=== PATIENT | male | born 1970 | race Caucasian/White ===

== ENCOUNTER 2021-10-21 15:51 | Inpatient (IN) | payer BC ==
[2021-10-21] MEDS ORDERED: Ondansetron ODT 4 MG TAB PO PRN (17:17)
[2021-10-21] MEDS ORDERED: Acetaminophen 325 MG TAB PO PRN (17:17)
[2021-10-21] MEDS ORDERED: Acetaminophen 650 MG Suppository PR PRN (17:17)
[2021-10-21] MEDS ORDERED: Nitroglycerin 0.4 MG TAB (25 Tab Bottle) SL PRN (17:19)
[2021-10-21] MEDS ORDERED: hydrALAZINE 20 MG/ML VIAL SLOW IVP PRN (17:20)
[2021-10-21] MEDS ORDERED: Sodium Chloride 0.9% 1,000 ML IV SCH (17:30)
[2021-10-21] MEDS: Ondansetron PF 4 MG/2 ML Vial IVP PRN (18:31)
[2021-10-21] MEDS ORDERED: Pantoprazole 40 MG VIAL IVP SCH (19:00)
[2021-10-21 19:31] VITALS: BMI 29.9
[2021-10-22 06:05] LABS: Creatinine, Urine 150.68 mg/dL (63-166)
[2021-10-22 06:11] LABS: Anion Gap 18 mmol/L (10-20); BUN (Urea Nitrogen) 30 mg/dL (8.4-25.7); Calc. Creatinine Clearance 77 mL/min (70-130); Carbon Dioxide 24 mmol/L (22-29); Cardiac Risk 5.1 (Less than 4.5); Chloride 105 mmol/L (98-107); Cholesterol 157 mg/dl (< 200 Desired); Glucose 107 mg/dL (70-105); HDL Cholesterol 31 mg/dL (>60 Neg Risk); LDL Cholesterol, Calculated 91 mg/dL; Magnesium 2.1 mg/dL (1.6-2.6); Potassium 3.8 mmol/L (3.5-5.1); Sodium 143 mmol/L (136-145); Triglycerides 173 mg/dL (Less than 150)
[2021-10-22 07:07] LABS: #Basophils 0.1 10x3/uL (0.0-0.2); #Eosinphils 0.2 10x3/uL (0.0-0.5); #Neutrophils 3.4 10x3/uL (1.5-8.4); %Basophils 0.9 % (0.0-2.0); %Eosinophils 2.6 % (0.0-6.0); %Lymphocytes 27.8 % (18.0-47.0); %Monocytes 14.9 % (0.0-10.0); %Neutrophils 53.6 % (40.0-75.0); Hemoglobin 16.1 g/dL (13.5-17.5); Mean Corpuscular HGB CONC 33.8 g/dL (32.0-36.0); Mean Corpuscular Hemoglobin 29.2 pg (27.0-33.0); Mean Corpuscular Volume 86.4 fl (81.2-95.1); Mean Platelet Volume 11.2 fl (7.4-10.4); Platelet Count 162 10x3/uL (150-450); RBC Distribution Width 14.6 % (11.5-14.5); Red Blood Cell (RBC) Count 5.52 10x6/uL (4.32-5.72); White Blood Cell (WBC) Count 6.4 10x3/uL (3.5-10.5)
[2021-10-22 07:07] LABS: SARS-CoV-2 NAA Rapid Test Not Detected (NotDetected)
[2021-10-22] MEDS: Aspirin Chewable 81 MG TAB PO SCH (09:41)
[2021-10-22] MEDS: Pantoprazole 40 MG VIAL IVP SCH (09:42)
[2021-10-22 12:37] LABS: Hemoglobin A1c 5.6 % (4.0-6.0)
[2021-10-22] MEDS ORDERED: Communication Order-Pharmacy FS SCH (15:30)
[2021-10-22] MEDS: Ondansetron PF 4 MG/2 ML Vial IVP PRN (16:03)
[2021-10-22] MEDS ORDERED: methylPREDNISolone Sod Succ 40 MG VIAL IVP SCH (18:00)
[2021-10-22] MEDS: Metoprolol Tartrate 25 MG TAB PO SCH (20:33)
[2021-10-22] MEDS: methylPREDNISolone Sod Succ 40 MG VIAL IVP SCH (20:34)
[2021-10-22] MEDS ORDERED: Metoprolol Tartrate 25 MG TAB PO SCH (21:00)
[2021-10-22] MEDS ORDERED: Atorvastatin Calcium 40 MG TAB PO SCH (21:00)
[2021-10-23] MEDS ORDERED: Morphine 4 MG/ML VIAL SLOW IVP SCH (01:00)
[2021-10-23] MEDS: methylPREDNISolone Sod Succ 40 MG VIAL IVP SCH ×3 (02:26→15:00)
[2021-10-23 04:22] LABS: Anion Gap 17 mmol/L (10-20); BUN (Urea Nitrogen) 24 mg/dL (8.4-25.7); Calc. Creatinine Clearance 110 mL/min (70-130); Calcium 9.7 mg/dL (7.8-10.44); Carbon Dioxide 23 mmol/L (22-29); Chloride 105 mmol/L (98-107); Glucose 130 mg/dL (70-105); Potassium 4.2 mmol/L (3.5-5.1); Sodium 141 mmol/L (136-145)
[2021-10-23 04:37] LABS: #Monocytes 0.4 10x3/uL (0.0-1.1); #Neutrophils 4.2 10x3/uL (1.5-8.4); %Basophils 0.7 % (0.0-2.0); %Eosinophils 0.2 % (0.0-6.0); %Lymphocytes 22.2 % (18.0-47.0); %Monocytes 6.4 % (0.0-10.0); %Neutrophils 70.3 % (40.0-75.0); Hemoglobin 16.6 g/dL (13.5-17.5); Mean Corpuscular HGB CONC 33.9 g/dL (32.0-36.0); Mean Corpuscular Hemoglobin 29.5 pg (27.0-33.0); Mean Platelet Volume 11.2 fl (7.4-10.4); Platelet Count 200 10x3/uL (150-450); RBC Distribution Width 14.2 % (11.5-14.5); Red Blood Cell (RBC) Count 5.63 10x6/uL (4.32-5.72)
[2021-10-23] MEDS: Metoprolol Tartrate 25 MG TAB PO SCH (05:43)
[2021-10-23] MEDS ORDERED: Nitroglycerin 50 MG/250 ML BOT 0 ML ONE (07:19)
[2021-10-23] MEDS ORDERED: Heparin 10,000 UNITS/ 10 ML VIAL ONE (07:19)
[2021-10-23] MEDS ORDERED: Bivalirudin 250 MG VIAL ONE (07:20)
[2021-10-23] MEDS: Aspirin Chewable 81 MG TAB PO SCH (07:28)
[2021-10-23] MEDS: Pantoprazole 40 MG VIAL IVP SCH (07:29)
[2021-10-23] MEDS ORDERED: Lidocaine 1% (PF) 30 ML VIAL ONE (07:32)
[2021-10-23] MEDS ORDERED: Midazolam HCl 2 mg/2 ml Vial ONE (07:54)
[2021-10-23] MEDS ORDERED: Fentanyl 100 MCG/2 ML VIAL ONE (07:54)
[2021-10-23] MEDS ORDERED: diphenhydrAMINE 50 MG/ML VIAL IVP SCH (08:00)
[2021-10-23] MEDS ORDERED: Famotidine/PF 20 mg/2ml Vial SLOW IVP SCH (08:00)
[2021-10-23] MEDS ORDERED: Sodium Chloride 0.9% 200 ML IV PRN (09:57)
[2021-10-23] MEDS ORDERED: Nitroglycerin 0.4 MG TAB (25 Tab Bottle) SL PRN (09:57)
[2021-10-23] MEDS ORDERED: Acetaminophen/Codeine 30-300mg Tablet PO PRN ×2 (09:57)
[2021-10-23 13:15] LABS: RBC/HPF 0-3 HPF (0-3)
[2021-10-23] MEDS ORDERED: Glycerin Adult Supp. (24 ct jar) PR SCH (16:00)
[2021-10-23 16:12] LABS: Bilirubin Neg (Negative); Blood, Urine 10 (Negative); Clarity Clear (Clear); Glucose, Urine (Dipstick) Normal (Negative); Ketone, Urine Negative (Negative); Leukocyte Negative (Negative); Nitrite Negative (Negative); Protein, Urine (Dipstick) Negative (Neg-Trace); Urobilinogen Normal mg/dL (Less than 2)
[2021-10-23 16:20] LABS: RBC/HPF 0-3 HPF (0-3)
[2021-10-23 16:32] VITALS: BP 134/76; TEMP 97.9
== END 2021-10-23 19:30 | disposition home or self-care (01) | DRG 287 ==
LOC: OBSVTOIN 15:51 → INTOOBSV 15:51 → UNDOADMIN 15:51 → CSHTELE 15:51
PROVIDERS: ADMIT Hospitalist; ATTEND Hospitalist
PROC: 4A023N7 Measurement of Cardiac Sampling and Pressure, Left Heart, Percutaneous Approach (ICD-10-PCS; principal; 2021-10-23)
PROC: B3101ZZ Fluoroscopy of Thoracic Aorta using Low Osmolar Contrast (ICD-10-PCS; 2021-10-23)
PROC: B2131ZZ Fluoroscopy of Multiple Coronary Artery Bypass Grafts using Low Osmolar Contrast (ICD-10-PCS; 2021-10-23)
PROC: B2111ZZ Fluoroscopy of Multiple Coronary Arteries using Low Osmolar Contrast (ICD-10-PCS; 2021-10-23)
PROC: B4101ZZ Fluoroscopy of Abdominal Aorta using Low Osmolar Contrast (ICD-10-PCS; 2021-10-23)
PROC: B4181ZZ Fluoroscopy of Bilateral Renal Arteries using Low Osmolar Contrast (ICD-10-PCS; 2021-10-23)
DX: I25.810 Atherosclerosis of coronary artery bypass graft(s) without angina pectoris (principal); N17.9 Acute kidney failure, unspecified; I10 Essential (primary) hypertension; E78.5 Hyperlipidemia, unspecified; I25.10 Atherosclerotic heart disease of native coronary artery without angina pectoris; G89.29 Other chronic pain; M54.9 Dorsalgia, unspecified; M10.9 Gout, unspecified; K59.00 Constipation, unspecified; Z20.822 Contact with and (suspected) exposure to COVID-19; Z95.1 Presence of aortocoronary bypass graft; Z88.0 Allergy status to penicillin; Z88.8 Allergy status to other drugs, medicaments and biological substances
CPT/HCPCS: 36245; 36252; 36415; 70450; 70551; 76770; 80048; 80061; 81015; 82570; 83036; 83735; 83880; 84300; 84443; 84484; 85025; 93005; 93010; 93306; 93459; 93880; 94760; 99152; 99153; C1760; C1769; C9113; J0583; J1200; J1644; J2001; J2250; J2270; J2405; J2920; J3010; J7050; S0028; U0002

== ENCOUNTER 2025-03-13 10:19 | Emergency (ER) | payer BC ==
[2025-03-13] MEDS ORDERED: Fluorescein Opthalmic Strip ONE (10:59)
[2025-03-13] MEDS ORDERED: Proparacaine 0.5% Opth 15 ML BOT ONE (11:00)
[2025-03-13] MEDS ORDERED: Acetaminophen 500 MG TAB ONE (11:18)
== END 2025-03-13 12:40 | disposition home or self-care (01) ==
LOC: CSHERS 10:19
DX: H10.9 Unspecified conjunctivitis (principal)
CPT/HCPCS: 99283